=== PATIENT | male | born 1970 | race Caucasian/White ===

== ENCOUNTER 2018-05-29 23:22 | Inpatient (IN) | payer OTHER ==
[~2018-05-29] VITALS: Ht 167.6 cm; Wt 85.3 kg
[~2018-05-29 23:22] MED LIST: MEDROLDOSEPACK PO; NOHOMEMEDICATIONS; PROMETHAZINE-D120 ML PO
[2018-05-29 23:23] VITALS: BP 170/97
[2018-05-29 23:48] LABS: ABSOLUTE EOSINOPHILS 0.5 thou/uL (0.0-0.7); ABSOLUTE LYMPHOCYTES 4.5 thou/uL (0.8-5.3); ABSOLUTE MONOCYTES 0.9 thou/uL (0.0-1.2); ABSOLUTE NEUTROPHILS 4.5 thou/uL (1.6-8.1); BASOPHILS 0.2 %; EOSINOPHILS 4.5 %; HEMATOCRIT 45.8 % (42.0-52.0); HEMOGLOBIN 15.1 gm/dL (14.0-18.0); MCH 29.4 pg (26.0-34.0); MCHC 33.1 g/dL (28.0-37.0); MCV 89.1 fL (80.0-100.0); MONOCYTES 8.7 %; MPV 7.5 fl. (7.2-11.1); NUCLEATED RBCS 0 /100WBC; PLATELET COUNT* 371 thou/uL (150-400); POLYS 43.6 %; RBC 5.15 mil/uL (4.50-6.00); RDW-CV 13.8 % (10.5-14.5); WBC 10.4 thou/uL (4.0-11.0)
[2018-05-29 23:51] LABS: ANION GAP 11 mmol/L (7-16); BUN 9 mg/dL (7-18); CHLORIDE 103 mmol/L (98-107); CO2 25 mmol/L (21-32); GLUCOSE 91 mg/dL (70-99); POTASSIUM 3.8 mmol/L (3.5-5.1); SODIUM 139 mmol/L (136-145)
[2018-05-29 23:54] LABS: PROTIME 9.8 Seconds (9.20-11.50)
[2018-05-30 00:02] LABS: ALKALINE PHOSPHATASE 91 U/L (46-116); LIPASE 265 U/L (73-393); NT-PRO BRAIN NAT PEPTIDE 21 pg/mL (<300); SGOT 18 U/L (15-37); SGPT 36 U/L (30-65); TOTAL BILIRUBIN 0.3 mg/dL (<0.1-1.0); TOTAL PROTEIN 8.1 g/dL (6.4-8.2); TROPONIN-I LEVEL <0.06 ng/mL (<0.06)
[2018-05-30 01:05] LABS: URINE CLARITY CLEAR; URINE COLOR YELLOW; URINE GLUCOSE-RANDOM NEGATIVE (Negative); URINE PROTEIN NEGATIVE (Negative)
[2018-05-30 01:06] LABS: URINE BILIRUBIN NEGATIVE (Negative); URINE BLOOD NEGATIVE (Negative); URINE KETONES NEGATIVE (Negative); URINE LEUKOCYTES-REFLEX NEGATIVE (Negative); URINE NITRITE-REFLEX NEGATIVE (Negative); URINE UROBILINOGEN 0.2 E.U./dl (0.2-1.0)
[2018-05-30 01:10] LABS: AMP/METHAMP Negative (Negative); BARBITURATES Negative (Negative); BENZODIAZEPINES Negative (Negative); COCAINE Negative (Negative); METHADONE Negative (Negative); OPIATES Negative (Negative); PCP Negative (Negative); THC Negative (Negative)
[2018-05-30 02:16] VITALS: BP 113/61
[2018-05-30 02:25] VITALS: BP 136/77
[2018-05-30 09:00] VITALS: BP 120/65
[2018-05-30 09:14] LABS: CHOLESTEROL 209 mg/dL (<200); HDL CHOLESTEROL 24 mg/dL (>40); LDL CHOLESTEROL 138 mg/dL (<100); SERUM ASSESSMENT Clear; TC:HDL 8.7 Ratio (Not establshd); TRIGLYCERIDE 235 mg/dL (<150); VLDL 47 mg/dL (<40)
--- NOTE | 2018-05-30 14:49 | CARDNUC ---
[place] [address] CARDIAC NUCLEAR IMAGING REPORT Name: SHIV MOLINA Room: [address] IN [facility]#: [id number] Admission: 05/30/18 Attend Phys: Shiv Moreno, Discharge: Date of : 68 Date of Service: 05/30/18 1448 Report #: [id number] THIS REPORT FOR: //name// APPROVED REPORT Imaging Protocol: Rest Tc-99m/Stress Tc-99m 1 day Study performed: 05/30/2018 08:52:00 Indication: Chest pain, Dyspnea Patient Location: In-Patient Room #: [facility] [place] Stress Tech: Carrie Ponce Stress Nurse: Nancy Solano RN NM Tech:CHRISTINE Zamarripa Ht: 5 ft 6 in Wt: 177 lbs BSA: 1.90 m2 BMI: 28.56 Medical History Medical History: Angina, SOB, Smoking Medications: None Allergies: Azithromycin Cardiac Risk Factors: Age, Current Smoker, FHX of CAD, SOB Previous Cardiac Procedures: none Pretest Chest Pain Characteristics: No chest pain Exercise History: Indeterminate Physical Disabilities: Generalized weakness, SOA Meds Held (24 hrs): None Resting Data Rest SPECT myocardial perfusion imaging was performed in supine position 30 minutes following the intravenous injection of 11.9 mCi of Tc-99m Sestamibi. Time of rest injection: 0910 Date: 05/30/2018 Time of rest imagin The images were gated to evaluate regional wall motion and calculate left ventricular ejection fraction. Administration Route: IV Administration Site: Right Hand Pharmacologic Stress Pharmacologic stress test was performed by injecting Regadenoson 0.4 mg IV push over 10-15 seconds immediately followed by the intravenous injection of 33.5 mCi of Tc-99m Sestamibi. Time of stress injection: 1055 Date: 05/30/2018 [place] [address] CARDIAC NUCLEAR IMAGING REPORT Name: SHIV MOLINA Room: [address]#: [id number] Admission: 05/30/18 Attend Phys: Shiv Moreno, Discharge: Date of : 68 Date of Service: 05/30/18 1448 Report #: [id number] Time of stress imagin Administration Route: IV Administration Site: Right Hand Gated Stress SPECT was performed 40 minutes after stress injection. The images were gated to evaluate regional wall motion and calculate left ventricular ejection fraction. Prone imaging was performed. Stress Test Details Stress Test: Pharmacologic stress was paired with low level exercise. Reason for pharmacologic stress test: SOA, Generalized weakness. HR Max Heart Rate (APMHR): 172 bpm Resting HR: 57 bpm Target HR (85% APMHR): 146 bpm Max HR Achieved: 102 bpm % of APMHR: 59 Recovery HR: 63 bpm BP Resting BP: 125/78 mmHg Max BP: 158/60 mmHg Recovery BP: 149/80 mmHg ECG Resting ECG: Sinus Rhythm, normal EKG Stress ECG: Sinus Rhythm, normal EKG ST Change: None Arrhythmia: None Recovery ECG: Sinus Rhythm, normal EKG Recovery ST Change: None Recovery Arrhythmia: None Clinical Reason for Termination: Completed protocol Stress Symptoms: None reported Exercise duration: 4 min 00 sec Exercise capacity: 2.30 METs The patient tolerated Lexiscan infusion without significant symptoms. Nurse Comments 47 year old male, inpatient, presented with fatigue and generalized weakness and reported SOA. Patient agreed to walk a slow, low incline walk on treadmill as best he can. [place] [address] CARDIAC NUCLEAR IMAGING REPORT Name: SHIV MOLINA Room: [address]#: [id number] Admission: 05/30/18 Attend Phys: Shiv Moreno, Discharge: Date of : 68 Date of Service: 05/30/18 1448 Report #: [id number] well with no side effects reported. Recovery unremarkable. Patient taken via wheelchair by staff to Nuclear Medicine for images. Patient stable with no complaints at that time. Stress ECG Conclusion The baseline 12-lead EKG shows sinus rhythm with no significant ST or T wave abnormalities. EKGs obtained during and post Lexiscan infusion show sinus rhythm with no significant ST or T wave changes when compared baseline. There were no stress-induced arrhythmias. Study Quality Study: Good Artifact: No artifact Study Data At rest, the left ventricular ejection fraction was 74%.. Post stress, the left ventricular ejection was 68%.. TID = 1.09. Perfusion Normal left ventricular perfusion. Wall Motion Normal left ventricular wall motion. Nuclear Conclusion ECG Findings: negative for ischemia Clinical Findings: negative for ischemia Nuclear Findings: negative for ischemia Exercise Capacity: not assessed Left Ventricular Function: normal Risk Study: low Myocardial perfusion images obtained during and post Lexiscan stress show no defect to suggest infarct or ischemia. Left ventricular systolic function is normal on gated studies. This is a low risk study. <Conclusion> The baseline 12-lead EKG shows sinus rhythm with no significant ST or T wave abnormalities. EKGs obtained during and post Lexiscan infusion show sinus rhythm with no significant ST or T wave changes when compared baseline. There were no stress-induced arrhythmias. <ELECTRONICALLY SIGNED> By: Ameya Eddy MD, FACC 05/30/18 1448 1448 1448 Ameya Eddy MD, FACC /INF
[2018-05-30] MEDS ORDERED: OMEPRAZOLE 20 M20 M1 PO (16:10)
[2018-05-30 16:11] VITALS: BP 120/65
--- NOTE | 2018-05-30 16:23 | EKG ---
[place] [address] ELECTROCARDIOGRAM REPORT Name: SHIV MOLINA Room: [address] ADM [place] .R.#: [id number] Admission: 05/30/18 Attend Phys: Shiv Moreno MD Discharge: Date of : 68 Report #: [id number] THIS REPORT FOR: //name// [facility] ED Test Date: 2018-05-29 Test Time: 23:24:21 Pat Name: SHIV MOLINA Department: Room: [facility] Gender: M Product Marketing Executive: : 1970 Requested By: Yesi Moreau Order Number: [id number] MD: Ameya Eddy Measurements Intervals [place] Rate: 65 P: 36 AL: 154 QRS: -16 QRSD: 106 T: 43 QT: 395 QTc: 411 Interpretive Statements Sinus rhythm Borderline left axis deviation RSR' in V1 or V2, probably normal variant No previous ECG available for comparison Electronically Signed On 05-30-2018 16:23:40 REPTILE KEEPER by Ameya Eddy [email or web address] <ELECTRONICALLY SIGNED> By: Ameya Eddy MD, [facility] 05/30/18 1623 23 Ameya Eddy MD, FACC /EPI
--- NOTE | 2018-05-30 16:49 | 2DMMODE ---
[place] [address] 2 D/M-MODE ECHOCARDIOGRAM Name: SHIV MOLINA Room: [address] IN [facility]#: [id number] Admission: 05/30/18 Attend Phys: Shiv Moreno, Discharge: Date of : 68 Date of Service: 05/30/18 1648 Report #: [id number] THIS REPORT FOR: //name// APPROVED REPORT Study performed: 05/30/2018 15:06:58 EXAM: Comprehensive 2D, Doppler, and color-flow Echocardiogram Patient Location: In-Patient Room #: [facility] Status: routine BSA: 1.95 HR: 52 bpm BP: 136/77 mmHg Rhythm: NSR Other Information Study Quality: Good Indications Chest Pain 2D Dimensions IVSd: 11.35 (7-11mm) LVOT Diam: 22.28 (18-24mm) LVDd: 44.33 mm PWd: 10.26 (7-11mm) Ascending Ao: 31.60 (22-36mm) LVDs: 32.33 (25-40mm) Aortic Root: 34.12 mm Volumes Left Atrial Volume (Systole) LA ESV Index: 22.00 mL/m2 Aortic Valve AoV Peak Gerardo.: 1.53 m/s AO Peak Gr.: 9.41 mmHg LVOT Max P.38 mmHg AO Mean Gr.: 4.84 mmHg LVOT Mean P.07 mmHg LVOT Max V: 1.05 m/s AO V2 VTI: 33.71 cm LVOT Mean V: 0.66 m/s CRISTY (VTI): 2.31 cm2 LVOT V1 VTI: 19.92 cm Mitral Valve E/A Ratio: 1.22 MV Decel. Time: 215.99 ms MV E Max Gerardo.: 1.01 m/[place] [address] 2 D/M-MODE ECHOCARDIOGRAM Name: SHIV MOLINA Room: [address] [place] .R.#: [id number] Admission: 05/30/18 Attend Phys: Shiv Moreno, Discharge: Date of : 68 Date of Service: 05/30/18 1648 Report #: [id number] MV PHT: 62.64 ms MVA (PHT): 3.51 cm2 TDI E/Lateral E': 7.77 E/Medial E': 7.77 Medial E' Gerardo.: 0.13 m/s Lateral E' Gerardo.: 0.13 m/s Pulmonary Valve PV Peak Gerardo.: 0.93 m/s PV Peak Gr.: 3.43 mmHg Tricuspid Valve RAP Estimate: 5.00 mmHg TR Peak Gr.: 23.90 mmHg RVSP: 29.00 mmHg PA Pressure: 29.00 mmHg Left Ventricle The left ventricle is normal size. There is normal LV segmental wall motion. There is normal left ventricular wall thickness. Left ventricular systolic function is normal. LVEF is 60-65%. The left ventricular diastolic function is normal. Right Ventricle The right ventricle is normal size. The right ventricular systolic function is normal. Atria The left atrium size is normal. The right atrium size is normal. Aortic Valve The aortic valve is normal in structure. No aortic regurgitation is present. There is no aortic valvular stenosis. Mitral Valve The mitral valve is normal in structure. Trace mitral regurgitation. No evidence of mitral valve stenosis. Tricuspid Valve The tricuspid valve is normal in structure. Mild tricuspid regurgitation. No pulmonary hypertension. Pulmonic Valve The pulmonary valve is normal in structure. There is no pulmonic [place]vular [place] [address] 2 D/M-MODE ECHOCARDIOGRAM Name: SHIV MOLINA Room: [address] [place] [facility]#: [id number] Admission: 05/30/18 Attend Phys: Shiv Moreno, Discharge: Date of : 68 Date of Service: 05/30/18 1648 Report #: [id number] Great Vessels The aortic root is normal in size. IVC is normal in size and collapses >50% with inspiration. Pericardium There is no pericardial effusion. <Conclusion> The left ventricle is normal size. There is normal left ventricular wall thickness. Left ventricular systolic function is normal. LVEF is 60-65%. The left ventricular diastolic function is normal. Trace mitral regurgitation. Mild tricuspid regurgitation. No pulmonary hypertension. <ELECTRONICALLY SIGNED> By: Ameya Eddy MD, FACC 05/30/181647 47 47 Ameya Eddy MD, FACC /INF
== END 2018-05-30 17:00 | disposition home or self-care (01) | DRG 206 ==
LOC: M.ERS 23:22 → M.TBA-ER 05-30 01:56 → M.2W 05-30 02:25
PROVIDERS: Emergency Medicine; Nurse Practitioner Family; ADMIT Internal Medicine
DX: M94.0 Chondrocostal junction syndrome [Tietze] (principal); I10 Essential (primary) hypertension; E78.5 Hyperlipidemia, unspecified; F17.210 Nicotine dependence, cigarettes, uncomplicated; Z90.49 Acquired absence of other specified parts of digestive tract; Z88.1 Allergy status to other antibiotic agents; Z71.6 Tobacco abuse counseling; Z82.49 Family history of ischemic heart disease and other diseases of the circulatory system

== ENCOUNTER 2019-09-20 13:55 | Emergency (ER) | payer OTHER ==
[~2019-09-20] VITALS: Ht 167.6 cm; Wt 77.1 kg
[~2019-09-20 13:55] MED LIST changes: +OMEPRAZOLE 20 M20 M1 PO
[2019-09-20] MEDS ORDERED: LIPITOR10 MG PO (14:09)
[2019-09-20] MEDS ORDERED: CENTANY30 GM TOP (14:38)
[2019-09-20] MEDS ORDERED: DOXYCYCLINE 10100 MG PO (14:38)
[2019-09-20 15:13] VITALS: BP 161/108
== END 2019-09-20 15:14 | disposition home or self-care (01) ==
LOC: M.ERS 13:55
DX: T25.522A Corrosion of first degree of left foot, initial encounter (principal); T32.0 Corrosions involving less than 10% of body surface; F17.210 Nicotine dependence, cigarettes, uncomplicated; Z90.49 Acquired absence of other specified parts of digestive tract; Z88.1 Allergy status to other antibiotic agents; Y93.89 Activity, other specified; Y92.89 Other specified places as the place of occurrence of the external cause; Y99.0 Civilian activity done for income or pay